=== PATIENT | female | born 1960 | race Caucasian/White ===

== ENCOUNTER 2019-10-27 15:32 | Inpatient (IN) | payer BC ==
[~2019-10-27] VITALS: Ht 167.6 cm; Wt 96.0 kg
[2019-10-27 15:40] VITALS: BP 123/65
[2019-10-27 16:11] LABS: BASO % 0.1 % (0.0-1.0); LYMPH # 1.7 10*3/uL (1.3-4.4); LYMPH % 25.3 % (27.0-41.0); MEAN CELL VOLUME 91.9 fl (81.0-99.0); MEAN CORPUSCULAR HGB CONC 32.6 g/dl (33.0-37.0); MEAN PLATELET VOLUME 10.7 fl (9.6-12.3); MONO # 0.3 10*3/uL (0.1-1.0); MONO % 4.9 % (3.0-9.0); NEUT # 4.7 10*3/uL (2.3-7.9); NEUT % 69.3 % (47.0-73.0); PLATELET COUNT AUTOMATED 258 10*3/uL (130-400); RED BLOOD COUNT 4.57 10*6/uL (4.10-5.10); RED CELL DISTRI WIDTH 13.6 % (0-14.5); WHITE BLOOD COUNT 6.8 10*3/uL (4.8-10.8)
[2019-10-27 16:22] LABS: ACT PARTIAL THROMBO TIME 37.3 SECONDS (20.0-32.1)
[2019-10-27 16:26] LABS: ALKALINE PHOSPHATASE 62 U/L (45-117); BUN 13 mg/dl (7-24); CHLORIDE 105 mmol/L (98-107); CREATININE 0.89 mg/dL (0.55-1.02); POTASSIUM 2.9 mmol/L (3.5-5.1); SGOT/AST 43 IU/L (3-35); SGPT/ALT 32 U/L (12-78); SODIUM 138 mmol/L (136-145); TOTAL PROTEIN 7.3 gm/dL (6.4-8.2)
[2019-10-27 16:31] LABS: TROPONIN I < 0.015 ng/ml (<0.045)
[2019-10-27 16:55] VITALS: BP 103/54
[2019-10-27 17:27] VITALS: BP 117/51
--- NOTE | 2019-10-27 18:16 | NUR ---
PT ON MONITORED SHOWED MULTIPLE PVCS. DR. MILES AWARE.
[2019-10-27 18:59] LABS: TROPONIN I < 0.015 ng/ml (<0.045)
[2019-10-27 19:18] LABS: ARTERIAL BLOOD GAS PH 7.408 (7.35-7.45)
[2019-10-27 20:00] VITALS: BP 127/88
--- NOTE | 2019-10-27 20:00 | NUR ---
A 59, admitted to , under the services of DIPIKA Tatum DO with a diagnosis of COVID-19. Chief complaint is SHORTNESS OF BREATH. Patient arrived via stretcher from ER. Monitor applied. Initial assessment completed. Vital signs taken and recorded. DIPIKA TATUM DO notified of admission to the unit. Orders received. See assessment for past medical history, medications and allergies. Patient and/or family oriented to unit. [facility]. Clothing/patient valuable form completed. YANIRA GASTON
[2019-10-27] MEDS ORDERED: OMEPRAZOLE40 MG PO (20:40)
[2019-10-27] MEDS ORDERED: OXAPROZIN600 M1 PO (20:40)
[2019-10-27] MEDS ORDERED: PROVENTIL HFA6.7 GM INH (20:40)
[2019-10-27] MEDS ORDERED: COSENTYX P150 MG/1 M SQ (20:41)
[2019-10-27] MEDS ORDERED: PAROXETINE HCL20 MG PO (20:41)
[2019-10-27] MEDS ORDERED: LISINOPRIL20 MG PO (20:42)
--- NOTE | 2019-10-27 20:42 | NUR ---
MED REC COMPLETED WITH PATIENT ALERT AND ORIENTED
--- NOTE | 2019-10-27 22:20 | NUR ---
SPOKE WITH DR FRIEDMAN, STATES TO NOT GIVE THE ROCEPHIN
--- NOTE | 2019-10-27 22:51 | NUR ---
DR MORGAN AWARE OF CONSULT. STATES HE WILL SEE THE PATIENT EARLY IN THE MORNING
--- NOTE | 2019-10-27 22:56 | NUR ---
MEDICATED WITH ZOFRAN PER ORDERS. REMINDED HER NOT TO DRINK ANYTHING FOR AT LEAST AN HOUR. WILL MONITOR
--- NOTE | 2019-10-27 23:04 | NUR ---
DR GALAVIZ AWARE OF CONSULT. ORDERS TAKEN. STATES TO HAVE THE RESIDENT PUT IN A CENTRAL LINE FOR 3 MARÍA ELENAUNS RENZO
--- NOTE | 2019-10-27 23:06 | NUR ---
CALLED DR FRIEDMAN REGARDING CENTRAL LINE PLACEMENT. HE STATES THE INTERVENTIONAL RADIOLOGIST IS DOING THOSE. ATTEMPTED TO CALL THE SEAFOOD PROCESSOR INTERVENTIONAL RADIOLOGIST, NO ANSWER
[2019-10-28] VITALS: BP 103/50
--- NOTE | 2019-10-28 | NUR ---
PREVIOUS ZOFRAN EFFECTIVE PER PATIENT
--- NOTE | 2019-10-28 01:32 | NUR ---
CENTRAL LINE PLACED BY DEVAUGHN MENESES. PATIENT TOLERATED WELL.
--- NOTE | 2019-10-28 02:58 | NUR ---
PATIENT IS ENCOURAGED TO LAY PRONE. VERBALIZED UNDERSTANDING
--- NOTE | 2019-10-28 03:56 | NUR ---
PATIENT AMBULATED TO RESTROOM WITHOUT OXYGEN ON. WHEN BACK TO BED. PATIENT WAS 83-85% ON ROOM AIR. PLACED BACK ON 3L O2 AND ENCOURAGED SLOW DEEP BREATHING THROUGH THE NOSE. PATIENT ONLY SATING AT 90%. 02 INCREASED TO 5L AND PATIENT SATING AT 92%.
[2019-10-28 04:00] VITALS: BP 102/668; BP 102/68
--- NOTE | 2019-10-28 04:16 | NUR ---
RESPIRATORY MADE AWARE OF PATIENT. STATES THEY WILL GET HER 0530 BLOOD GASES NOW.
[2019-10-28 04:31] LABS: ARTERIAL BLOOD GAS PH 7.442 (7.35-7.45)
[2019-10-28 04:32] LABS: ABG BASE EXCESS 1.6 mmol/L (-2.0-2.0)
--- NOTE | 2019-10-28 05:28 | NUR ---
PATIENT PULSE OX REMAINS AT 96% ON 5 LITERS.
[2019-10-28 05:58] LABS: ALBUMIN 2.5 gm/dl (3.1-4.5); ALKALINE PHOSPHATASE 53 U/L (45-117); BUN 15 mg/dl (7-24); CHLORIDE 106 mmol/L (98-107); CREATININE 0.78 mg/dL (0.55-1.02); LDH 339 U/L (84-246); SGOT/AST 42 IU/L (3-35); SGPT/ALT 27 U/L (12-78); TOTAL PROTEIN 6.6 gm/dL (6.4-8.2)
[2019-10-28 06:01] LABS: SODIUM 140 mmol/L (136-145)
[2019-10-28 06:06] LABS: POTASSIUM 4.2 mmol/L (3.5-5.1)
[2019-10-28 06:18] LABS: BASO % 0.1 % (0.0-1.0); HEMATOCRIT 37.8 % (37.0-47.0); LYMPH # 1.2 10*3/uL (1.3-4.4); LYMPH % 18.5 % (27.0-41.0); MEAN CELL VOLUME 92.4 fl (81.0-99.0); MEAN CORPUSCULAR HGB 29.8 pg (27.0-31.0); MEAN CORPUSCULAR HGB CONC 32.3 g/dl (33.0-37.0); MEAN PLATELET VOLUME 11.5 fl (9.6-12.3); MONO # 0.5 10*3/uL (0.1-1.0); MONO % 6.7 % (3.0-9.0); NEUT % 74.3 % (47.0-73.0); PLATELET COUNT AUTOMATED 252 10*3/uL (130-400); RED BLOOD COUNT 4.09 10*6/uL (4.10-5.10); RED CELL DISTRI WIDTH 13.5 % (0-14.5); WHITE BLOOD COUNT 6.7 10*3/uL (4.8-10.8)
[2019-10-28 07:00] LABS: BILIRUBIN NEGATIVE (NEGATIVE); BLOOD NEGATIVE (NEGATIVE); CLARITY CLEAR (CLEAR); COLOR YELLOW (YELLOW); GLUCOSE NEGATIVE (NEGATIVE); KETONE NEGATIVE (NEGATIVE); LEUKO ESTERASE NEGATIVE (NEGATIVE); NITRITE NEGATIVE (NEGATIVE); PH 6.5 (5.0-9.0); UROBILINOGEN 0.2 E.U./dl (0.2-1.0); WBC 16-20 wbc/hpf (0-5)
[2019-10-28 07:01] LABS: BACTERIA 1+; MUCOUS 1+
[2019-10-28 08:00] VITALS: BP 110/58
[2019-10-28 08:12] LABS: BUN 15 mg/dl (7-24)
[2019-10-28 08:13] LABS: CHLORIDE 104 mmol/L (98-107); CREATININE 0.89 mg/dL (0.55-1.02); POTASSIUM 2.9 mmol/L (3.5-5.1); SODIUM 138 mmol/L (136-145)
[2019-10-28 08:14] LABS: LDH 33 U/L (84-246); TROPONIN I < 0.015 ng/ml (<0.045)
--- NOTE | 2019-10-28 08:22 | NUR ---
PT MEDICATED WITH TYLENOL PER REQUEST FOR BACK PAIN RATING 5/10
--- NOTE | 2019-10-28 09:00 | NUR ---
PER PT TYLENOL WAS EFFECTIBE, PT ENCOURAGED TO SWITCH THE THE PRONE POSITION FREQUENTLY TOLERATED.
--- NOTE | 2019-10-28 09:19 | NUR ---
PT ENCOURAGED TO PRONE
--- NOTE | 2019-10-28 09:27 | NUR ---
PER , ORDERED TO CONTINUE ROCEPHIN ORDERED.
--- NOTE | 2019-10-28 09:33 | NUR ---
AWARE OF NEED FOR RAPID COVID-TEST. SAID HE WILL BE IN TO COMPLETE THE TEST SOON.
--- NOTE | 2019-10-28 11:24 | NUR ---
RAPID COVID-TEST + TODAY.
[2019-10-28 11:44] LABS: ABG BASE EXCESS 2.4 mmol/L (-2.0-2.0); ARTERIAL BLOOD GAS PH 7.463 (7.35-7.45)
[2019-10-28 12:00] VITALS: BP 126/54
--- NOTE | 2019-10-28 13:12 | NUR ---
Geomorphologist in to talk to patient. Patient states lives at HOME with FAMILY. There are NO steps in the home. Physician: [facility] services: NONE Patient's level of ADLs: INDEPENDENT Patient has working utilities: YES DME: NONE Follow-up physician's appointment after d/c: WILL BE MADE BY HOSPITALIST NURSE DIRECTOR ON DISCHARGE Does patient want to access PORTAL?: NO Discharge plan PT LIVES AT HOME WITH HER FAMILY AND IS INDEPENDENT IN HER CARE. DENIES SHE WILL HAVE ANY NEEDS ON DISCHARGE. PLANS TO RETURN HOME WHEN MEDICALLY STABLE. WILL CONTINUE TO FOLLOW. STATES HER WILL TAKE HER HOME ON DISCHARGE.. JAMIL SAMUELS
[2019-10-28 16:00] VITALS: BP 114/68
[2019-10-28 20:00] VITALS: BP 148/64
[2019-10-29] VITALS: BP 118/48
[2019-10-29 04:27] LABS: BASO % 0.2 % (0.0-1.0); EOS % 0.2 % (1.0-4.0); HEMATOCRIT 36.3 % (37.0-47.0); LYMPH # 1.9 10*3/uL (1.3-4.4); LYMPH % 34.1 % (27.0-41.0); MEAN CELL VOLUME 92.8 fl (81.0-99.0); MEAN CORPUSCULAR HGB 29.9 pg (27.0-31.0); MEAN CORPUSCULAR HGB CONC 32.2 g/dl (33.0-37.0); MEAN PLATELET VOLUME 10.2 fl (9.6-12.3); MONO # 0.7 10*3/uL (0.1-1.0); MONO % 12.2 % (3.0-9.0); NEUT # 2.9 10*3/uL (2.3-7.9); NEUT % 52.9 % (47.0-73.0); PLATELET COUNT AUTOMATED 281 10*3/uL (130-400); RED BLOOD COUNT 3.91 10*6/uL (4.10-5.10); RED CELL DISTRI WIDTH 13.7 % (0-14.5); WHITE BLOOD COUNT 5.4 10*3/uL (4.8-10.8)
[2019-10-29 04:42] LABS: ALBUMIN 2.5 gm/dl (3.1-4.5); ALKALINE PHOSPHATASE 50 U/L (45-117); BUN 14 mg/dl (7-24); CHLORIDE 107 mmol/L (98-107); CREATININE 0.75 mg/dL (0.55-1.02); POTASSIUM 3.3 mmol/L (3.5-5.1); SGOT/AST 35 IU/L (3-35); SGPT/ALT 28 U/L (12-78); SODIUM 141 mmol/L (136-145); TOTAL PROTEIN 6.6 gm/dL (6.4-8.2)
[2019-10-29 05:55] LABS: ABG BASE EXCESS 2.5 mmol/L (-2.0-2.0); ARTERIAL BLOOD GAS PH 7.435 (7.35-7.45)
[2019-10-29 07:05] LABS: HEP B CORE AB, IGM Negative (Negative); HEPATITIS B SURFACE AG Negative (Negative); HEPATITIS C AB <0.1 (0.0-0.9); HEPATITIS C VIRUS ANTIBODY <0.1 s/co (0.0-0.9)
[2019-10-29 08:00] VITALS: BP 127/47
[2019-10-29 12:00] VITALS: BP 135/52
--- NOTE | 2019-10-29 12:43 | NUR ---
PT RESTING IN BED. FACE MASK INTACT. NO S/S OF DISTRESS. DENIES PAIN AND SOB. WILL CONTINUE TO MONITOR.
[2019-10-29 16:00] VITALS: BP 125/98
--- NOTE | 2019-10-29 16:38 | NUR ---
AWARE OF QTC BETWEEN 500-550 AT THIS TIME PER CM. ORDERED TO HOLD PLAQUENIL TONIGHT AND HAVE AN EKG COMPLETED IN AM.
[2019-10-29 20:00] VITALS: BP 143/66
[2019-10-30] VITALS: BP 132/69
--- NOTE | 2019-10-30 04:13 | NUR ---
PATIENT SLEEPING. NO SIGNS OF DISTRESS. RESPIRATIONS EASY, NON LABORED. BED IN LOWEST POSITION,CALL LIGHT WITHIN REACH. WILL CONTINUE TO MONITOR.
[2019-10-30 06:46] LABS: MEAN CELL VOLUME 92.3 fl (81.0-99.0); MEAN CORPUSCULAR HGB 29.7 pg (27.0-31.0); MEAN CORPUSCULAR HGB CONC 32.2 g/dl (33.0-37.0); MEAN PLATELET VOLUME 10.1 fl (9.6-12.3); PLATELET COUNT AUTOMATED 315 10*3/uL (130-400); RED BLOOD COUNT 4.01 10*6/uL (4.10-5.10); RED CELL DISTRI WIDTH 13.4 % (0-14.5); WHITE BLOOD COUNT 5.6 10*3/uL (4.8-10.8)
[2019-10-30 07:24] LABS: ALBUMIN 2.6 gm/dl (3.1-4.5); ALKALINE PHOSPHATASE 56 U/L (45-117); BUN 9 mg/dl (7-24); CHLORIDE 105 mmol/L (98-107); CREATININE 0.62 mg/dL (0.55-1.02); POTASSIUM 3.7 mmol/L (3.5-5.1); SGOT/AST 38 IU/L (3-35); SGPT/ALT 31 U/L (12-78); SODIUM 141 mmol/L (136-145); TOTAL PROTEIN 6.8 gm/dL (6.4-8.2)
[2019-10-30 07:42] LABS: BASOPHILS 2 % (0-1); TOTAL CELLS COUNTED 100 #CELLS
[2019-10-30 07:43] LABS: PLATELET SUFFICIENCY NORMAL (NORMAL)
[2019-10-30 08:00] VITALS: BP 118/84
[2019-10-30 12:00] VITALS: BP 132/68
[2019-10-30 12:40] LABS: ABG BASE EXCESS 4.2 mmol/L (-2.0-2.0); ARTERIAL BLOOD GAS PH 7.502 (7.35-7.45)
[2019-10-30 16:00] VITALS: BP 143/81
[2019-10-30 17:32] LABS: ABG BASE EXCESS 3.7 mmol/L (-2.0-2.0); ARTERIAL BLOOD GAS PH 7.468 (7.35-7.45)
[2019-10-30 20:00] VITALS: BP 142/64
[2019-10-30 20:17] LABS: ABG BASE EXCESS 3.5 mmol/L (-2.0-2.0); ARTERIAL BLOOD GAS PH 7.475 (7.35-7.45)
--- NOTE | 2019-10-30 20:45 | NUR ---
IN TO ASSESS PATIENT, PATIENT VERY PLEASANT AND COOPERATIVE, STILL ON 15L NONREBREATHER. STATES SHE FEELS PRETTY GOOD TODAY. PATIENT HAS NO COMPLAINTS CURRENTLY EXCEPT SHE NEEDS A NAP. ENCOURAGED PATIENT TO SELF PRONE EVERY 2 HOURS. PATIENT VERBALIZED UNDERSTANDING. PATIENT LAYS THE MAJORITY OF THE TIME ON THE LEFT SIDE. PARTIALLY ON STOMACH. CALL LIGHT REMAINS WITHIN REACH. WILL MONITOR
--- NOTE | 2019-10-30 21:25 | NUR ---
SPOKE WITH DR. GALAVIZ PERTAINING TO PATIENT. DR. GALAVIZ INQUIRED ABOUT HOW THE PATIENT WAS DOING. NOTIFIED HIM THE PATIENTS O2 SATS HAVE BEEN BETWEEN 98-100% ON NONREBREATHER. PATIENT STATES SHE FEELS REALLY WELL. MINIMAL SHORTNESS OF BREATH GETTING UP TO BEDSIDE COMMODE AND PULSE OX DIPPED ONLY TO 95%. NOTIFIED DR. GALAVIZ WE WOULD CALL HIM IF ANYTHING CHANGES.
[2019-10-31] VITALS: BP 137/61
--- NOTE | 2019-10-31 00:05 | NUR ---
24 HR chart check completed.
--- NOTE | 2019-10-31 03:09 | NUR ---
PATIENT SLEEPING. BREATHING IS EASY AND REGULAR MAINTAININED ON 15L NONREBREATHER. PULSE OX 98%. PATIENT LYING ON BACK. CALL LIGHT WITHIN REACH, WILL MONITOR
--- NOTE | 2019-10-31 06:45 | NUR ---
SPOKE WITH DR. GALAVIZ. NOTIFIED HIM THAT PATIENT IS DOING GREAT THIS MORNING AND STATES THAT SHE FEELS MUCH BETTER TODAY AND SHE IS CURRENTLY 97% ON 15L NONREBREATHER
[2019-10-31 06:50] LABS: HEMATOCRIT 38.9 % (37.0-47.0); MEAN CELL VOLUME 91.7 fl (81.0-99.0); MEAN CORPUSCULAR HGB CONC 32.6 g/dl (33.0-37.0); MEAN PLATELET VOLUME 10.1 fl (9.6-12.3); PLATELET COUNT AUTOMATED 376 10*3/uL (130-400); RED BLOOD COUNT 4.24 10*6/uL (4.10-5.10); RED CELL DISTRI WIDTH 13.4 % (0-14.5); WHITE BLOOD COUNT 8.7 10*3/uL (4.8-10.8)
[2019-10-31 07:19] LABS: ALBUMIN 2.8 gm/dl (3.1-4.5); ALKALINE PHOSPHATASE 58 U/L (45-117); BUN 16 mg/dl (7-24); CHLORIDE 105 mmol/L (98-107); CREATININE 0.85 mg/dL (0.55-1.02); POTASSIUM 3.6 mmol/L (3.5-5.1); SGOT/AST 44 IU/L (3-35); SGPT/ALT 39 U/L (12-78); SODIUM 140 mmol/L (136-145); TOTAL PROTEIN 7.3 gm/dL (6.4-8.2)
[2019-10-31 07:47] LABS: ABG BASE EXCESS 4.3 mmol/L (-2.0-2.0); ARTERIAL BLOOD GAS PH 7.454 (7.35-7.45)
[2019-10-31 07:57] LABS: ATYPICAL LYMPHS 1 % (0-0); BASOPHILS 1 % (0-1); PLATELET SUFFICIENCY NORMAL (NORMAL); POLYCHROMASIA SLIGHT; TOTAL CELLS COUNTED 100 #CELLS
[2019-10-31 08:00] VITALS: BP 137/61
--- NOTE | 2019-10-31 10:30 | NUR ---
DR. GALAVIZ HERE FOR MORNING HUDDLE. PATIENT CARE REVIEWED. ORDERS RECEIVED.
[2019-10-31 12:00] VITALS: BP 138/72
[2019-10-31 16:00] VITALS: BP 126/70
[2019-10-31 20:00] VITALS: BP 137/67
--- NOTE | 2019-10-31 20:00 | NUR ---
Patient sitting up in bed, paying bills, on non-rebreather. States she feels good, denies any shortness of breath, denies any pain. Dry cough, non-productive. Patient 99-100% vital signs stable. Encouraged patient to prone self when going to sleep. Monitoring on camera.
[2019-11-01] VITALS: BP 103/49
[2019-11-01 04:00] VITALS: BP 130/60
[2019-11-01 06:06] LABS: ABG BASE EXCESS 2.9 mmol/L (-2.0-2.0); ARTERIAL BLOOD GAS PH 7.438 (7.35-7.45)
[2019-11-01 06:29] LABS: MEAN CELL VOLUME 91.5 fl (81.0-99.0); MEAN CORPUSCULAR HGB 29.6 pg (27.0-31.0); MEAN CORPUSCULAR HGB CONC 32.3 g/dl (33.0-37.0); MEAN PLATELET VOLUME 10.4 fl (9.6-12.3); PLATELET COUNT AUTOMATED 401 10*3/uL (130-400); RED BLOOD COUNT 4.26 10*6/uL (4.10-5.10); RED CELL DISTRI WIDTH 13.2 % (0-14.5); WHITE BLOOD COUNT 8.9 10*3/uL (4.8-10.8)
[2019-11-01 06:44] LABS: ALBUMIN 2.8 gm/dl (3.1-4.5); ALKALINE PHOSPHATASE 58 U/L (45-117); BUN 20 mg/dl (7-24); CHLORIDE 105 mmol/L (98-107); CREATININE 0.92 mg/dL (0.55-1.02); POTASSIUM 3.5 mmol/L (3.5-5.1); SGOT/AST 36 IU/L (3-35); SGPT/ALT 38 U/L (12-78); SODIUM 139 mmol/L (136-145); TOTAL PROTEIN 7.3 gm/dL (6.4-8.2)
[2019-11-01 07:11] LABS: PLATELET SUFFICIENCY HIGH (NORMAL); TOTAL CELLS COUNTED 100 #CELLS
[2019-11-01 08:00] VITALS: BP 98/51
[2019-11-01 12:00] VITALS: BP 94/62
--- NOTE | 2019-11-01 13:45 | NUR ---
PATIENT TAKEN OFF NON-BREATHER, PLACED ON 50% VENTURI MASK. PULSE OX 96%.
[2019-11-01 16:00] VITALS: BP 100/46
--- NOTE | 2019-11-01 16:00 | NUR ---
VENTURI MASK DECREASED TO 40%, PULSE OX 93%.
[2019-11-01 20:00] VITALS: BP 129/65
--- NOTE | 2019-11-01 20:49 | NUR ---
1941 RESTING IN BED IN SUPINE POSITION. ALERT AND PLEASANT. ISOLATION MAINTAINED. NO DISTRESS NOTED. PULSE OX 93% ON 40% VENTURI MASK. RIJ MLC INTACT. NO C/O'S VOICED.
--- NOTE | 2019-11-01 22:05 | NUR ---
REMAINS WIHTOUT C/O'S. O2 INTACT. NO DISTRESS NOTED. CONDITION GUARDED.
[2019-11-02] VITALS: BP 119/48
--- NOTE | 2019-11-02 | NUR ---
IN TO ASSESS PATIENT AT THIS TIME. RESTING COMFORTABLY UPON ENTRANCE TO ROOM. VITALS STABLE. NO SIGNS OF DISCOMFORT OR DISTRESS NOTED. PATIENT STATES THAT HER COUGH IS RESOLVING AND THAT SHE ISN'T EXPERIENCING SHORTNESS OF BREATH AT REST OR EXERTION AT THIS TIME. PT HAS NO COMPLAINTS. WILL MONITOR. CALL LIGHT IN REACH.
[2019-11-02 05:18] LABS: ALBUMIN 2.7 gm/dl (3.1-4.5); BUN 20 mg/dl (7-24); CHLORIDE 108 mmol/L (98-107); CREATININE 0.85 mg/dL (0.55-1.02); POTASSIUM 4.3 mmol/L (3.5-5.1); SGOT/AST 34 IU/L (3-35); SGPT/ALT 42 U/L (12-78); SODIUM 138 mmol/L (136-145); TOTAL PROTEIN 7.1 gm/dL (6.4-8.2)
[2019-11-02 05:19] LABS: ALKALINE PHOSPHATASE 52 U/L (45-117)
[2019-11-02 06:16] LABS: BASO # 0.1 10*3/uL (0.0-0.1); BASO % 0.6 % (0.0-1.0); EOS # 0.1 10*3/uL (0.0-0.4); EOS % 1.4 % (1.0-4.0); HEMATOCRIT 37.1 % (37.0-47.0); LYMPH # 2.6 10*3/uL (1.3-4.4); LYMPH % 28.8 % (27.0-41.0); MEAN CELL VOLUME 93.7 fl (81.0-99.0); MEAN CORPUSCULAR HGB 29.8 pg (27.0-31.0); MEAN CORPUSCULAR HGB CONC 31.8 g/dl (33.0-37.0); MEAN PLATELET VOLUME 10.4 fl (9.6-12.3); MONO # 1.2 10*3/uL (0.1-1.0); MONO % 13.7 % (3.0-9.0); NEUT # 4.9 10*3/uL (2.3-7.9); NEUT % 54.7 % (47.0-73.0); PLATELET COUNT AUTOMATED 390 10*3/uL (130-400); RED BLOOD COUNT 3.96 10*6/uL (4.10-5.10); RED CELL DISTRI WIDTH 13.3 % (0-14.5)
[2019-11-02 08:00] VITALS: BP 115/62
--- NOTE | 2019-11-02 11:39 | NUR ---
PT TITRATED TO A 3L NC AND IS ABBIE. WELL. SATS ARE STEADY AT 95-96%.
[2019-11-02 12:00] VITALS: BP 119/55
[2019-11-02 16:00] VITALS: BP 113/68
[2019-11-02 20:00] VITALS: BP 123/55
[2019-11-03] VITALS: BP 111/52
--- NOTE | 2019-11-03 05:56 | NUR ---
PT ASLEEP IN BED AT THIS TIME. 3L NC IN USE. RESPS ARE EASY AND NONLABORED. PULSE OX 99%. NO C/O VOICED AT THIS TIME. BED IS LOW, CALL LIGHT WITHIN REACH. WILL CONTINUE TO MONITOR.
[2019-11-03 06:08] LABS: BASO % 0.4 % (0.0-1.0); EOS # 0.1 10*3/uL (0.0-0.4); EOS % 0.9 % (1.0-4.0); HEMATOCRIT 38.8 % (37.0-47.0); LYMPH % 29.2 % (27.0-41.0); MEAN CORPUSCULAR HGB 29.5 pg (27.0-31.0); MEAN CORPUSCULAR HGB CONC 31.7 g/dl (33.0-37.0); MEAN PLATELET VOLUME 10.4 fl (9.6-12.3); MONO # 1.2 10*3/uL (0.1-1.0); MONO % 11.7 % (3.0-9.0); NEUT # 5.9 10*3/uL (2.3-7.9); PLATELET COUNT AUTOMATED 479 10*3/uL (130-400); RED BLOOD COUNT 4.17 10*6/uL (4.10-5.10); RED CELL DISTRI WIDTH 13.2 % (0-14.5); WHITE BLOOD COUNT 10.4 10*3/uL (4.8-10.8)
[2019-11-03 06:20] LABS: ALBUMIN 2.9 gm/dl (3.1-4.5); ALKALINE PHOSPHATASE 62 U/L (45-117); BUN 27 mg/dl (7-24); CHLORIDE 105 mmol/L (98-107); CREATININE 0.84 mg/dL (0.55-1.02); POTASSIUM 4.1 mmol/L (3.5-5.1); SGOT/AST 26 IU/L (3-35); SGPT/ALT 39 U/L (12-78); SODIUM 141 mmol/L (136-145); TOTAL PROTEIN 7.6 gm/dL (6.4-8.2)
[2019-11-03 08:00] VITALS: BP 105/56
[2019-11-03 12:00] VITALS: BP 119/53
[2019-11-03 12:34] LABS: ABG BASE EXCESS 1.2 mmol/L (-2.0-2.0); ARTERIAL BLOOD GAS PH 7.45 (7.35-7.45)
[2019-11-03 14:15] LABS: INTERNATIONAL NORM RATIO 1.1 (2.0-3.5)
[2019-11-03 16:00] VITALS: BP 102/56
--- NOTE | 2019-11-03 17:51 | NUR ---
Pox 100% on 3l/NC. O2 decreased to 2l/NC. Setting up in bed. No complaints. Ebony Bundy Rn
--- NOTE | 2019-11-03 19:30 | NUR ---
PT IS AWAKE AND SITTING UP IN BED AT THIS TIME. RESPS ARE EASY AND NONLABORED. 2L O2 IN USE VIA NC. VITALS WNL, NO C/O VOICED AT THIS TIME. BED IS LOW, CALL LIGHT WITHIN REACH. WILL CONTINUE TO MONITOR.
[2019-11-03 20:00] VITALS: BP 111/61
[2019-11-04] VITALS: BP 135/64
--- NOTE | 2019-11-04 01:35 | NUR ---
24 HR CHART CHECK COMPLETE.
[2019-11-04 06:02] LABS: BASO # 0.1 10*3/uL (0.0-0.1); BASO % 0.8 % (0.0-1.0); EOS # 0.1 10*3/uL (0.0-0.4); EOS % 1.3 % (1.0-4.0); HEMATOCRIT 37.2 % (37.0-47.0); LYMPH # 3.1 10*3/uL (1.3-4.4); LYMPH % 31.9 % (27.0-41.0); MEAN CELL VOLUME 93.5 fl (81.0-99.0); MEAN CORPUSCULAR HGB 29.6 pg (27.0-31.0); MEAN CORPUSCULAR HGB CONC 31.7 g/dl (33.0-37.0); MEAN PLATELET VOLUME 10.7 fl (9.6-12.3); MONO % 10.6 % (3.0-9.0); NEUT # 5.3 10*3/uL (2.3-7.9); PLATELET COUNT AUTOMATED 471 10*3/uL (130-400); RED BLOOD COUNT 3.98 10*6/uL (4.10-5.10); RED CELL DISTRI WIDTH 13.2 % (0-14.5); WHITE BLOOD COUNT 9.7 10*3/uL (4.8-10.8)
[2019-11-04 06:22] LABS: ALBUMIN 2.9 gm/dl (3.1-4.5); ALKALINE PHOSPHATASE 61 U/L (45-117); BUN 21 mg/dl (7-24); CHLORIDE 107 mmol/L (98-107); CREATININE 0.77 mg/dL (0.55-1.02); INTERNATIONAL NORM RATIO 1.1 (2.0-3.5); POTASSIUM 4.4 mmol/L (3.5-5.1); SGOT/AST 25 IU/L (3-35); SGPT/ALT 38 U/L (12-78); SODIUM 141 mmol/L (136-145); TOTAL PROTEIN 7.4 gm/dL (6.4-8.2)
[2019-11-04 07:31] LABS: ARTERIAL BLOOD GAS PH 7.427 (7.35-7.45)
[2019-11-04 08:00] VITALS: BP 112/65
--- NOTE | 2019-11-04 08:46 | NUR ---
Awake and alert. No c/o . Ambulatory in room .
--- NOTE | 2019-11-04 11:00 | NUR ---
TALKED TO PT ABOUT HOME HEALTH FOR NURSING AND INR CHECKS. PT IS AGREEABLE.
--- NOTE | 2019-11-04 11:32 | NUR ---
REFERRAL FAXED TO [facility].
--- NOTE | 2019-11-04 11:46 | NUR ---
PATIENT EVALUATED TO SEE IF SHE REQUIRES HOME OXYGEN. DURING REST HER VITALS ARE: BLOOD PRESSURE:136/75,HEART RATE:91, SPO2:96%. DURING AMBULATION PATIENT WAS ACTIVE AND TALKING, SHE DID SAY THAT SHE WAS FATIGUE. WHICH IS NORMAL WITH A PREVIOUS COVID -19 INFECTION.DURING AMBULATION, BLOOD PRESSURE:143/87, HEART RATE 102, SPO2:96%. PATIENT DOES NOT REQUIRE HOME OXYGEN.
[2019-11-04] MEDS ORDERED: ENOXAPARIN100 MG/1 M SC (12:18)
[2019-11-04] MEDS ORDERED: PLAQUENIL200 MG PO (12:18)
[2019-11-04] MEDS ORDERED: COUMADIN5 M2 PO (12:18)
--- NOTE | 2019-11-04 13:00 | NUR ---
Dr. Rodriguez and Keke in to evaulate, Order for discharge recieved. RT evaulated for home O2, not needed. TLC/RIJ removed pressure to site x 3 mins and pressure dressing was applied.
--- NOTE | 2019-11-04 13:28 | NUR ---
Discharge instruction given. Voiced understanding. Awaiting spouse for departure.
--- NOTE | 2019-11-04 14:00 | NUR ---
Discharged to home.
== END 2019-11-04 13:28 | disposition home health service (06) | DRG 177 ==
LOC: ED 15:32 → 5E 17:16 → EDHOLD 17:16 → 5E 19:45 → 4NE 11-03 13:48
PROVIDERS: Emergency Medicine; Family Medicine; Internal Medicine; Internal Medicine Critical Care Medicine; Student in an Organized Health Care Education/Training Program; ADMIT Internal Medicine
PROC: B548ZZA Ultrasonography of Superior Vena Cava, Guidance (ICD-10-PCS; principal; 2019-10-28)
PROC: 02HV33Z Insertion of Infusion Device into Superior Vena Cava, Percutaneous Approach (ICD-10-PCS; principal; 2019-10-28)
DX: U07.1 COVID-19 (principal); E43 Unspecified severe protein-calorie malnutrition; J12.89 Other viral pneumonia; J96.01 Acute respiratory failure with hypoxia; D68.59 Other primary thrombophilia; N17.9 Acute kidney failure, unspecified; E83.41 Hypermagnesemia; E87.6 Hypokalemia; J45.20 Mild intermittent asthma, uncomplicated; L40.50 Arthropathic psoriasis, unspecified; D64.9 Anemia, unspecified; E66.01 Morbid (severe) obesity due to excess calories; E87.5 Hyperkalemia; R94.5 Abnormal results of liver function studies; I10 Essential (primary) hypertension; K21.9 Gastro-esophageal reflux disease without esophagitis; F41.1 Generalized anxiety disorder; E83.39 Other disorders of phosphorus metabolism; Z90.710 Acquired absence of both cervix and uterus; Z82.49 Family history of ischemic heart disease and other diseases of the circulatory system; Z83.3 Family history of diabetes mellitus; Z84.89 Family history of other specified conditions; Z88.5 Allergy status to narcotic agent; Z88.0 Allergy status to penicillin; Z79.899 Other long term (current) drug therapy; Z68.33 Body mass index [BMI] 33.0-33.9, adult

== ENCOUNTER → 2020-08-11 | Outpatient (CLI) | payer BC ==
[~2020-08-11] MED LIST: COSENTYX P150 MG/1 M SQ; COUMADIN5 M2 PO; ENOXAPARIN100 MG/1 M SC; LISINOPRIL20 MG PO; OMEPRAZOLE40 MG PO; OXAPROZIN600 M1 PO; PAROXETINE HCL20 MG PO; PLAQUENIL200 MG PO; PROVENTIL HFA6.7 GM INH
== END | disposition home or self-care (01) ==
LOC: ORTHO 01:39
PROVIDERS: ATTEND Orthopaedic Surgery
DX: M25.551 Pain in right hip (principal)

== ENCOUNTER 2020-09-05 20:23 | Emergency (ER) | payer BC ==
[~2020-09-05] VITALS: Ht 165.1 cm; Wt 99.8 kg
== END 2020-09-05 22:29 | disposition home or self-care (01) ==
LOC: ED 20:23
DX: S66.911A Strain of unspecified muscle, fascia and tendon at wrist and hand level, right hand, initial encounter (principal); J45.909 Unspecified asthma, uncomplicated; F41.9 Anxiety disorder, unspecified; I10 Essential (primary) hypertension; K21.9 Gastro-esophageal reflux disease without esophagitis; L40.50 Arthropathic psoriasis, unspecified; Z88.0 Allergy status to penicillin; Z88.5 Allergy status to narcotic agent; Z79.899 Other long term (current) drug therapy; Z79.01 Long term (current) use of anticoagulants; Z90.711 Acquired absence of uterus with remaining cervical stump; Z98.890 Other specified postprocedural states; W22.8XXA Striking against or struck by other objects, initial encounter; Y93.89 Activity, other specified; Y92.89 Other specified places as the place of occurrence of the external cause; Y99.8 Other external cause status

== ENCOUNTER 2024-07-03 18:44 | Emergency (ER) | payer MEDICARE ==
[~2024-07-03] VITALS: Ht 165.1 cm; Wt 102.1 kg
[2024-07-03] MEDS ORDERED: METFORMIN XR500 MG PO (19:18)
[2024-07-03] MEDS ORDERED: LOSARTAN POTAS100 M1 PO (19:18)
[2024-07-03] MEDS ORDERED: ROSUVASTATIN CAL5 MG PO (19:20)
[2024-07-03] MEDS ORDERED: CELEBREX50 MG PO (19:22)
[2024-07-03] MEDS ORDERED: Acetaminophen/Hydrocodone 5 MG/325 MG TABLET PO ONE (19:40)
[2024-07-03] MEDS ORDERED: Acetaminophen/Hydrocodone Bi 3 TAB PACK PO PRN (20:55)
[2024-07-03] MEDS ORDERED: Acetaminophen/Hydrocodone Bi 3 TAB PACK PO ONE (21:15)
== END 2024-07-03 21:17 | disposition home or self-care (01) ==
LOC: ED 18:44
DX: S86.911A Strain of unspecified muscle(s) and tendon(s) at lower leg level, right leg, initial encounter (principal); J45.909 Unspecified asthma, uncomplicated; E11.9 Type 2 diabetes mellitus without complications; Z88.0 Allergy status to penicillin; Z88.5 Allergy status to narcotic agent; Z90.710 Acquired absence of both cervix and uterus; Z98.890 Other specified postprocedural states; W22.8XXA Striking against or struck by other objects, initial encounter; Y93.89 Activity, other specified; Y92.89 Other specified places as the place of occurrence of the external cause; Y99.8 Other external cause status